=== PATIENT | male | born 1975 | race Caucasian/White ===

== ENCOUNTER 2018-04-29 06:09 | Day surgery (SDC) | END 2018-04-29 10:38 | disposition home or self-care (01) ==

== ENCOUNTER 2019-02-03 10:50 | Day surgery (SDC) | payer OTHER ==
[~2019-02-03] VITALS: Ht 170.2 cm; Wt 68.2 kg
[~2019-02-03 10:50] MED LIST: LANS30CA PO
[2019-02-03 11:03] VITALS: Ht 170.2 cm; Wt 68.2 kg
[2019-02-03 11:10] VITALS: BP 123/71; PULSE 103; RESP 18
[2019-02-03] MEDS ORDERED: FENTAnyl 50 MCG/ML VIAL ONE (11:46)
[2019-02-03] MEDS ORDERED: MIDAZOLAM 1 MG/ML 2 ML INJ ONE ×3 (11:46→11:47)
[2019-02-03 12:17] VITALS: BP 113/73; PULSE 95; RESP 19
== END 2019-02-03 12:18 | disposition home or self-care (01) ==
LOC: GIL 10:50
PROVIDERS: ATTEND Internal Medicine Gastroenterology
DX: K59.00 Constipation, unspecified (principal); R63.4 Abnormal weight loss
CPT/HCPCS: 45378; J2250; J3010